=== PATIENT | male | born 1975 | race Hispanic/Latino ===

== ENCOUNTER → 2020-11-11 | Outpatient (CLI) | payer MEDICAID | END | disposition home or self-care (01) | LOC: SHCH 11:31 | PROVIDERS: ATTEND Internal Medicine Cardiovascular Disease | DX: R01.1 Cardiac murmur, unspecified (principal) | CPT/HCPCS: 93306; 93356 ==

== ENCOUNTER → 2025-01-31 | Outpatient (CLI) | payer MEDICARE ==
--- NOTE | 2025-01-31 15:45 | HMCIMG ---
FOOT LIMITED 2VWS RT HISTORY: Right flank pain COMPARISON: None TECHNIQUE: 2 images of the right foot were obtained. FINDINGS: The study is limited due to poor positioning. There are extensions of all the toes limiting evaluation. Small calcaneal spur is seen. Vascular calcifications are seen. There is no definite acute displaced fracture or dislocation. Degenerative changes are seen. IMPRESSION: 1. Findings as described above.
== END | disposition home or self-care (01) ==
LOC: RAH 14:42
PROVIDERS: ATTEND Internal Medicine
DX: M19.071 Primary osteoarthritis, right ankle and foot (principal); M77.31 Calcaneal spur, right foot; M79.671 Pain in right foot
CPT/HCPCS: 73620

== ENCOUNTER → 2025-09-19 | Outpatient (CLI) | payer MEDICARE ==
--- NOTE | 2025-09-19 20:40 | HMCIMG ---
STUDY: X-RAY OF THE CHEST, 2 VIEWS HISTORY: Benign essential hypertension. TECHNIQUE: PA and lateral views of the chest are submitted for interpretation. COMPARISON: None provided. FINDINGS: Pulmonary em: Mild prominence of the central bronchovascular markings, which may reflect mild vascular congestion. No focal consolidation, pulmonary edema, or suspicious pulmonary nodule. Symmetric aeration of both lungs. Cardiac silhouette: Mild cardiomegaly. Cardiac contours are otherwise unremarkable. Mediastinum and andre: Mediastinal contours and andre are within normal limits without evidence of mass or widening. Trachea is midline. Osseous structures: Visualized ribs, clavicles, scapulae, and thoracic spine show no acute osseous abnormality. Miscellaneous: No pleural effusion or pneumothorax. Costophrenic angles are clear bilaterally. No subdiaphragmatic free air. IMPRESSION: * Mild cardiomegaly with mild central bronchovascular prominence, compatible with mild vascular congestion. * No focal consolidation, pleural effusion, or pneumothorax. /Turrell
== END | disposition home or self-care (01) ==
LOC: RAH 13:48
PROVIDERS: ATTEND Internal Medicine
DX: I11.9 Hypertensive heart disease without heart failure (principal); I35.0 Nonrheumatic aortic (valve) stenosis; I65.29 Occlusion and stenosis of unspecified carotid artery; I73.9 Peripheral vascular disease, unspecified; R09.89 Other specified symptoms and signs involving the circulatory and respiratory systems
CPT/HCPCS: 71046